=== PATIENT | female | born 1950 | race Caucasian/White ===

== ENCOUNTER 2016-12-20 14:00 | Emergency (ER) | payer OTHER, BC ==
[~2016-12-20] VITALS: Ht 160 cm; Wt 83.0 kg
[~2016-12-20 14:00] MED LIST: ALTACE2.5 MG PO; ASPIRIN325 MG PO; ATORVASTATIN CA80 MG PO; Aspirin E.C. PO; DAILY VITAMIN1 EAC8 PO; EFFIENT10 MG PO; Ecotrin PO; Effient PO; FLEXERIL10 MG PO; IMDUR30 MG PO; ISOSORBIDE MONO60 MG PO; LOPRESSOR25 MG PO; Lipitor PO; MEDROL DOSEPAK4 MG PO; METOPROLOL SUCC25 MG PO; METOPROLOL TART25 MG PO; NAPROSYN500 MG PO; NAPROXEN500 MG PO; NEXIUM40 MG PO; NITROSTAT0.4 MG SL; Nitrostat,NitroQuick SL; PANTOPRAZOLE SO40 MG PO; Plavix PO; Protonix PO; RAMIPRIL2.5 MG PO; THERAGRAN1 TABLET PO
[2016-12-20 16:35] LABS: HEMATOCRIT 37.2 % (36.0-46.0); MCH 33.2 PG (29.0-34.0); MCHC 34.1 G/DL (30.0-36.0); MCV 97.1 FL (83-99); MEAN PLAT.VOLUME 10.8 uM^3 (9.5-12.4); PLATELET COUNT 140 K/uL (156-360); RBC DIS.WIDTH-CV 11.8 % (11.8-14.6); RBC DIS.WIDTH-SD 41.3 % (39-53); RED BLOOD COUNT 3.83 M/uL (3.80-5.20); WHITE BLOOD COUNT 4.4 K/uL (4.1-10.2)
[2016-12-20 16:46] LABS: ADD MIUA? YES; BILIRUBIN NEGATIVE; BLOOD NEGATIVE; COLOR YELLOW ((YELLOW)); GLUCOSE (STRIP) NEGATIVE; KETONES NEGATIVE; LEUKOCYTES NEGATIVE; NITRITE NEGATIVE; PROTEIN (STRIP) NEGATIVE; UROBILINOGEN 0.2 MG/DL (0.2-1.0)
[2016-12-20 16:47] LABS: CHLORIDE 107 mEq/L (99-109); POTASSIUM 3.9 mEq/L (3.7-5.4); SODIUM 143 mEq/L (136-147)
[2016-12-20 16:49] LABS: GLUCOSE 85 mg/dL (70-99)
[2016-12-20 16:49] LABS: BACTERIA NONE SEEN /HPF; EPITHELIAL CELLS RARE /HPF; MUCUS NONE SEEN /LPF; RED BLOOD CELLS 0-5 /HPF (0-5); UCUL ADDED? NO; WHITE BLOOD CELLS 0-5 /HPF (0-5)
[2016-12-20 16:50] LABS: ANION GAP 13 MEQ/L (2-14)
[2016-12-20 16:51] LABS: TOTAL BILIRUBIN 0.9 mg/dL (0.0-1.0)
[2016-12-20 16:53] LABS: ALKALINE PHOSPHATASE 92 IU/L (3-129); GFR ESTIMATE (CALCULATED) > 59 mL/min/
[2016-12-20 16:54] LABS: UREA NITROGEN (BUN) 9 mg/dL (9-23)
[2016-12-20 16:57] LABS: TROP-I INTERPRETATION NEGATIVE; TROPONIN-I < 0.01 ng/mL (0.0-0.30)
[2016-12-20] MEDS ORDERED: SKELAXIN800 MG PO (18:18)
[2016-12-20 18:48] VITALS: BP 141/79
== END 2016-12-20 18:48 | disposition home or self-care (01) ==
LOC: EME 14:00
PROVIDERS: Nurse Practitioner Family
DX: S29.012A Strain of muscle and tendon of back wall of thorax, initial encounter (principal); V43.52XA Car driver injured in collision with other type car in traffic accident, initial encounter; I25.2 Old myocardial infarction; K21.9 Gastro-esophageal reflux disease without esophagitis; E78.5 Hyperlipidemia, unspecified; I10 Essential (primary) hypertension; Z95.5 Presence of coronary angioplasty implant and graft; Z95.1 Presence of aortocoronary bypass graft; Z79.82 Long term (current) use of aspirin
CPT/HCPCS: 71020; 80053; 81003; 84484; 85027; 93005; 99281; 99284